=== PATIENT | male | born 1985 | race American Indian/Alaskan Native ===

== ENCOUNTER 2019-07-21 08:03 | Emergency (ER) | payer OTHER ==
[2019-07-21 08:09] VITALS: BP 141/98
--- NOTE | 2019-07-21 08:19 | Emergency Department Report ---
ED General Adult HPI - General Chief complaint: Medical Clearance Stated complaint: MED REFILL Time Seen by Provider: 07/21/19 08:18 Source: patient Mode of arrival: Ambulatory Limitations: No Limitations - History of Present Illness Initial comments: Patient is a 34-year-old male who presents the emergency room for refill of his HIV medication. He states that he is on Biktarvy. He states he has approximately 4 to 5 pills left. Patient states that he was in a program in [place] but could not get a refill because he did not complete his blood work that he needed to have performed. He denies any symptoms at all. He denies any other past medical history. He denies any allergies to medications. He is a smoker. He denies any EtOH use. Initial triage vitals with tachycardia which improved to normal upon repeat On exam: Non toxic appearing, no acute distress atraumatic, normocephalic normal appearance of the eyes, EOMI, no periorbital edema or ecchymosis regular heart rate and rhythm, no gallops, no rubs, no murmurs breath sounds are clear bilaterally, no w/r/r A&O x4, no focal neuro deficit skin is warm, dry, intact Patient is presenting for a refill of his HIV medication Patient was previously going to a clinic in [place] but he did not have the blood work performed that he needs to have monitored while being on this medication He still states he has approximately 4 to 5 pills left of this medication Patient will be referred to infectious disease, HIV clinics, health department in order for patient to receive appropriate routine monitoring and refill of his medication Discussed in detail with patient strict return precautions Patient given multiple resources Medical screening examination performed and there is no threat to life or limb at this time - Related Data Allergies Allergy/AdvReac Type Severity Reaction Status Date / Time No Known Allergies Allergy Unverified 07/21/19 08:07 ED Review of Systems ROS: Stated complaint: MED REFILL Other details as noted in HPI Comment: All other systems reviewed and negative ED Past Medical Hx - Past Medical History Previous Medical History?: Yes Hx HIV: Yes - Surgical History Past Surgical History?: No - Social History Smoking Status: Current Every Day Smoker Substance Use Type: None ED Physical Exam - General Limitations: No Limitations General appearance: alert, in no apparent distress - Head Head exam: Present: atraumatic, normocephalic - Eye Eye exam: Present: normal appearance - ENT ENT exam: Present: mucous membranes moist - Respiratory Respiratory exam: Present: normal lung sounds bilaterally. Absent: respiratory distress, wheezes, rales, rhonchi, stridor, chest wall tenderness, accessory muscle use, decreased breath sounds, prolonged expiratory - Cardiovascular Cardiovascular Exam: Present: regular rate, normal rhythm, normal heart sounds. Absent: systolic murmur, diastolic murmur, rubs, gallop - Neurological Exam Neurological exam: Present: alert, oriented X3 - Psychiatric Psychiatric exam: Present: normal affect, normal mood - Skin Skin exam: Present: warm, dry, intact ED Course Vital Signs 07/21/19 07/21/19 08:07 08:27 Temperature 98.9 F Pulse Rate 106 H 90 Respiratory 18 16 Rate Blood Pressure 141/98 O2 Sat by Pulse 98 96 Oximetry Critical care attestation.: If time is entered above; I have spent that time in minutes in the direct care of this critically ill patient, excluding procedure time. ED Disposition Clinical Impression: Encounter for medical screening examination Disposition: MED SCREENING EXAM-LEFT Is pt being admited?: No Does the pt Need Aspirin: No Condition: Stable Additional Instructions: Please follow-up with a primary care doctor, infectious disease, a clinic, or the health department. Return to the emergency room immediately for any new or worsening symptoms [facility] Address: [address] [place] [address] [facility] Address: [address] [facility] [address] [address] [facility] [place] Address: [address] [place] [address] [facility] Address: [address] [place] [address] [facility] Address: [address] [place] [address] Referrals: MACKENZIE PORRAS MD [Staff Physician] - 3-5 Days MANPREET TO MD [Staff Physician] - 3-5 Days [facility] [Provider Group] - 3-[address] [facility] [Outside] - 3-5 Days Time of Disposition: 08:19 Print Language: AZERI
== END 2019-07-21 08:27 | disposition left against medical advice (07) ==
LOC: ED 08:03
DX: Z76.0 Encounter for issue of repeat prescription (principal); Z53.21 Procedure and treatment not carried out due to patient leaving prior to being seen by health care provider